=== PATIENT | female | born 1970 | race Caucasian/White ===

== ENCOUNTER → 2022-03-16 | Outpatient (CLI) | payer OTHER ==
[2022-03-16 15:09] LABS: BASO # 0.01 K/mm3 (0.02-0.10); EOS # 0.14 K/mm3 (0.04-0.40); EOS % 1.6 % (1.0-5.0); HEMATOCRIT 43.2 % (37.0-47.0); HEMOGLOBIN 14.1 g/dL (12.5-16.0); LYMPH# 1.53 K/mm3 (1.50-4.00); MEAN CELL VOLUME 98 fl (78-100); MEAN CORPUSCULAR HEMOGLOBIN 32 pg (27-31); MEAN CORPUSCULAR HGB CONC 33 g/dL (33-37); MEAN PLATELET VOLUME 8.9 fl (7.4-10.4); MONO # 0.22 K/mm3 (0.20-0.80); NEU # 7.04 K/mm3 (1.40-6.50); PLATELET COUNT 297 K/mm3 (130-400); RED BLOOD COUNT 4.41 M/mm3 (4.10-5.30); RED CELL DISTRIBUTION WIDTH 14.3 % (11.5-14.5)
[2022-03-16 15:16] LABS: ALBUMIN 3.9 g/dL (3.5-5.0); POTASSIUM 3.8 mmol/L (3.5-5.1); SODIUM 140 mmol/L (136-145)
[2022-03-16 15:17] LABS: CALCIUM 9.6 mg/dL (8.3-10.5)
[2022-03-16 15:18] LABS: GLUCOSE 102 mg/dL (65-105); TOTAL PROTEIN 6.8 g/dL (6.4-8.3)
[2022-03-16 15:19] LABS: CARBON DIOXIDE 23 mmol/L (22-29)
[2022-03-16 15:20] LABS: TOTAL BILIRUBIN 0.5 mg/dL (0.2-1.2)
[2022-03-16 15:24] LABS: AST-SGOT 14 U/L (5-34)
[2022-03-16 15:25] LABS: ALT/SGPT 13 U/L (0-55)
[2022-03-16 16:31] LABS: ERYTHROCYTE SEDIMENTATION RATE 4 mm/hr (0-30)
== END ==
LOC: LAB 14:43
PROVIDERS: Student in an Organized Health Care Education/Training Program
DX: M05.79 Rheumatoid arthritis with rheumatoid factor of multiple sites without organ or systems involvement (principal); Z79.899 Other long term (current) drug therapy

== ENCOUNTER → 2022-05-04 | Outpatient (CLI) | payer OTHER ==
[2022-05-04 22:19] LABS: HEPATITIS C ANTIBODY Negative (Negative)
[2022-05-05 18:15] LABS: TB GOLD INTERPRETATION.TB GOLD Negative (Negative)
== END ==
LOC: LAB 10:56
PROVIDERS: Student in an Organized Health Care Education/Training Program
DX: Z01.812 Encounter for preprocedural laboratory examination (principal)

== ENCOUNTER → 2022-08-16 | Outpatient (CLI) | payer OTHER | LOC: LAB 16:35 | DX: M05.79 Rheumatoid arthritis with rheumatoid factor of multiple sites without organ or systems involvement (principal); Z79.899 Other long term (current) drug therapy ==

== ENCOUNTER 2024-05-07 16:29 | Emergency (ER) | payer OTHER ==
[2024-05-07] MEDS ORDERED: FINASTERIDE1 MG PO (16:40)
[2024-05-07] MEDS ORDERED: MINOXIDIL2.5 MG/TAB PO (16:40)
[2024-05-07] MEDS ORDERED: LEFLUNOMIDE10 MG PO (16:40)
[2024-05-07] MEDS ORDERED: PLAQUENIL 200M200 MG PO (16:40)
[2024-05-07] MEDS ORDERED: Ondansetron 4 MG/2 ML VIAL IV ONE (16:45)
[2024-05-07] MEDS ORDERED: NS 1,000 ML IV SCH (16:45)
[2024-05-07 17:25] LABS: EOS # 0.02 K/mm3 (0.04-0.40); EOS % 0.2 % (1.0-5.0); HEMATOCRIT 42.8 % (37.0-47.0); HEMOGLOBIN 14.2 g/dL (12.5-16.0); LYMPH# 0.91 K/mm3 (1.50-4.00); MEAN CELL VOLUME 93 fl (78-100); MEAN CORPUSCULAR HEMOGLOBIN 31 pg (27-31); MEAN CORPUSCULAR HGB CONC 33 g/dL (33-37); MEAN PLATELET VOLUME 9.7 fl (7.4-10.4); MONO # 0.25 K/mm3 (0.20-0.80); NEU # 9.03 K/mm3 (1.40-6.50); PLATELET COUNT 312 K/mm3 (130-400); RED BLOOD COUNT 4.58 M/mm3 (4.10-5.30); RED CELL DISTRIBUTION WIDTH 12.1 % (11.5-14.5); WHITE BLOOD COUNT 10.2 K/mm3 (4.8-10.8)
[2024-05-07 17:31] LABS: ALBUMIN 4.2 g/dL (3.5-5.0)
[2024-05-07 17:32] LABS: CALCIUM 9.8 mg/dL (8.3-10.5)
[2024-05-07 17:34] LABS: TOTAL PROTEIN 6.9 g/dL (6.4-8.3)
[2024-05-07 17:35] LABS: TOTAL BILIRUBIN 0.5 mg/dL (0.2-1.2)
[2024-05-07] MEDS ORDERED: REGLAN10 M2 PO (17:49)
[2024-05-07 17:59] VITALS: BP 106/72
== END 2024-05-07 18:00 | disposition home or self-care (01) ==
LOC: ED 16:29
PROVIDERS: Physician Assistant
DX: A08.4 Viral intestinal infection, unspecified (principal)
CPT/HCPCS: J2405; J2765; J7030

== ENCOUNTER 2024-05-09 04:08 | Emergency (ER) | payer OTHER ==
[~2024-05-09 04:08] MED LIST: FINASTERIDE1 MG PO; LEFLUNOMIDE10 MG PO; MINOXIDIL2.5 MG/TAB PO; PLAQUENIL 200M200 MG PO; REGLAN10 M2 PO
[2024-05-09 04:20] VITALS: BP 120/88
[2024-05-09] MEDS ORDERED: droPERidol 2.5 MG/ML 2 ML VIAL IV ONE (04:45)
[2024-05-09] MEDS ORDERED: NS 1,000 ML IV SCH (04:45)
[2024-05-09 04:56] LABS: BASO # 0.01 K/mm3 (0.02-0.10); EOS # 0.01 K/mm3 (0.04-0.40); EOS % 0.1 % (1.0-5.0); HEMATOCRIT 41.2 % (37.0-47.0); HEMOGLOBIN 14.3 g/dL (12.5-16.0); LYMPH# 1.58 K/mm3 (1.50-4.00); MEAN CELL VOLUME 90 fl (78-100); MEAN CORPUSCULAR HEMOGLOBIN 31 pg (27-31); MEAN CORPUSCULAR HGB CONC 35 g/dL (33-37); MEAN PLATELET VOLUME 9.3 fl (7.4-10.4); MONO # 0.52 K/mm3 (0.20-0.80); NEU # 9.15 K/mm3 (1.40-6.50); PLATELET COUNT 328 K/mm3 (130-400); RED CELL DISTRIBUTION WIDTH 12.1 % (11.5-14.5); WHITE BLOOD COUNT 11.3 K/mm3 (4.8-10.8)
[2024-05-09 05:03] LABS: ALBUMIN 4.3 g/dL (3.5-5.0)
[2024-05-09 05:04] LABS: SODIUM 138 mmol/L (136-145)
[2024-05-09 05:05] LABS: CALCIUM 9.7 mg/dL (8.3-10.5)
[2024-05-09 05:06] LABS: GLUCOSE 120 mg/dL (65-105)
[2024-05-09 05:07] LABS: CARBON DIOXIDE 23 mmol/L (22-29)
[2024-05-09 05:08] LABS: TOTAL BILIRUBIN 0.8 mg/dL (0.2-1.2)
[2024-05-09 05:11] LABS: AST-SGOT 18 U/L (5-34)
[2024-05-09 05:13] LABS: ALT/SGPT 19 U/L (0-55); LIPASE 34 U/L (8-78)
[2024-05-09] MEDS ORDERED: Iohexol 300 - 100 ML VIAL IV ONE (05:43)
[2024-05-09] MEDS ORDERED: Potassium Chloride 100 ML IV ONE (06:15)
[2024-05-09 07:00] LABS: PH-URINE 8.5 (5.0 - 8.0); URINE APPEARANCE SLIGHTLY CLOUDY (CLEAR); URINE BILIRUBIN NEGATIVE (NEGATIVE); URINE BLOOD NEGATIVE (NEGATIVE); URINE COLOR YELLOW (YELLOW); URINE GLUCOSE NEGATIVE (NEGATIVE); URINE KETONE TRACE (NEGATIVE); URINE LEUKOCYTE ESTERASE TRACE (NEGATIVE); URINE NITRATE NEGATIVE (NEGATIVE); URINE PROTEIN(semi-quant) NEGATIVE (NEGATIVE)
[2024-05-09 07:01] LABS: URINE MUCUS PRESENT (NOT PRESENT)
[2024-05-09] MEDS ORDERED: POTASSIUM CHLO10 ME7 PO (07:14)
[2024-05-09] MEDS ORDERED: PHENERGAN 25 TA25 MG PO (07:14)
== END 2024-05-09 07:20 | disposition home or self-care (01) ==
LOC: ED 04:08
PROVIDERS: Physician Assistant
DX: K52.9 Noninfective gastroenteritis and colitis, unspecified (principal); E87.6 Hypokalemia
CPT/HCPCS: J1790; J3480; J7030; Q9967

== ENCOUNTER 2024-11-22 16:18 | Emergency (ER) | payer OTHER ==
[~2024-11-22] VITALS: Ht 172.7 cm; Wt 59.5 kg
[~2024-11-22 16:18] MED LIST changes: +PHENERGAN 25 TA25 MG PO; +POTASSIUM CHLO10 ME7 PO
[2024-11-22] MEDS ORDERED: NS 1,000 ML IV SCH (16:45)
[2024-11-22 16:57] LABS: BASO # 0.01 K/mm3 (0.02-0.10); HEMATOCRIT 46.8 % (37.0-47.0); LYMPH# 1.66 K/mm3 (1.50-4.00); MEAN CELL VOLUME 91 fl (78-100); MEAN CORPUSCULAR HEMOGLOBIN 31 pg (27-31); MEAN CORPUSCULAR HGB CONC 34 g/dL (33-37); MEAN PLATELET VOLUME 9.9 fl (7.4-10.4); MONO # 0.79 K/mm3 (0.20-0.80); NEU # 6.63 K/mm3 (1.40-6.50); PLATELET COUNT 302 K/mm3 (130-400); RED BLOOD COUNT 5.14 M/mm3 (4.10-5.30); RED CELL DISTRIBUTION WIDTH 12.4 % (11.5-14.5); WHITE BLOOD COUNT 9.1 K/mm3 (4.8-10.8)
[2024-11-22 17:01] LABS: ALBUMIN 4.5 g/dL (3.5-5.0)
[2024-11-22 17:02] LABS: CALCIUM 10.2 mg/dL (8.3-10.5)
[2024-11-22 17:03] LABS: TOTAL PROTEIN 7.8 g/dL (6.4-8.3)
[2024-11-22 17:05] LABS: TOTAL BILIRUBIN 1.2 mg/dL (0.2-1.2)
[2024-11-22] MEDS ORDERED: Iohexol 300 - 100 ML VIAL IV ONE (17:59)
[2024-11-22] MEDS ORDERED: NS 100 ML IV SCH (18:00)
[2024-11-22 18:52] LABS: URINE APPEARANCE CLOUDY (CLEAR); URINE COLOR YELLOW (YELLOW)
[2024-11-22 18:53] LABS: PH-URINE 8.5 (5.0 - 8.0); URINE BILIRUBIN NEGATIVE (NEGATIVE); URINE BLOOD NEGATIVE (NEGATIVE); URINE GLUCOSE NEGATIVE (NEGATIVE); URINE KETONE 1+ (NEGATIVE); URINE LEUKOCYTE ESTERASE TRACE (NEGATIVE); URINE NITRATE POSITIVE (NEGATIVE); URINE PROTEIN(semi-quant) NEGATIVE (NEGATIVE)
[2024-11-22 18:54] LABS: URINE MUCUS PRESENT (NOT PRESENT)
[2024-11-22 18:56] VITALS: BP 124/76
[2024-11-22] MEDS ORDERED: PHENERGAN 25 TA25 MG PO (18:57)
[2024-11-22] MEDS ORDERED: CEPHALEXIN500 M2 PO (19:01)
[2024-11-22] MEDS ORDERED: CEPHALEXIN500 M1 PO (19:09)
== END 2024-11-22 19:05 | disposition home or self-care (01) ==
LOC: ED 16:18
PROVIDERS: Nurse Practitioner Family
DX: N39.0 Urinary tract infection, site not specified (principal); R11.2 Nausea with vomiting, unspecified; Z90.49 Acquired absence of other specified parts of digestive tract
CPT/HCPCS: J0780; J7030; Q9967